=== PATIENT | male | born 1975 | race Caucasian/White ===

== ENCOUNTER 2018-08-25 12:55 | Emergency (ER) | payer MEDICAID ==
[~2018-08-25] VITALS: Ht 177.8 cm; Wt 75.7 kg
[2018-08-25 13:08] VITALS: Ht 177.8 cm; Wt 75.7 kg
[2018-08-25 15:10] VITALS: BP 117/75
== END 2018-08-25 15:10 | disposition home or self-care (01) ==
LOC: ED 12:55
DX: J98.01 Acute bronchospasm (principal)

== ENCOUNTER 2018-09-02 10:24 | Emergency (ER) | payer MEDICAID ==
[~2018-09-02] VITALS: Ht 177.8 cm; Wt 75.7 kg
[2018-09-02 10:33] VITALS: BP 114/69; Ht 177.8 cm; Wt 75.7 kg
== END 2018-09-02 13:15 | disposition home or self-care (01) ==
LOC: ED 10:24
DX: J98.01 Acute bronchospasm (principal); Z98.890 Other specified postprocedural states
CPT/HCPCS: J7613; J7644

== ENCOUNTER 2019-01-03 15:41 | Emergency (ER) | payer MEDICAID ==
[~2019-01-03] VITALS: Ht 177.8 cm; Wt 74.8 kg
[2019-01-03 15:46] VITALS: Ht 177.8 cm; Wt 74.8 kg
[2019-01-03 17:44] LABS: BASOPHIL % 0.4 % (0-2); PLATELET COUNT 282 x10^3mcL (130-400); RED CELL DISTRIBUTION WIDTH 13.6 % (11.5-14.5)
[2019-01-03 17:56] LABS: CALCIUM 9.1 mg/dL (8.5-10.1); CARBON DIOXIDE 31.2 mmol/L (21-32); CHLORIDE SERUM 103 mmol/L (98-107); CREATININE SERUM 0.9 mg/dL (0.7-1.3); GFR1 > 60 mL/min; GLUCOSE SERUM 84 mg/dL (74-106); POTASSIUM SERUM 4.3 mmol/L (3.5-5.1); SODIUM SERUM 141 mmol/L (136-145)
[2019-01-03 18:01] LABS: ALBUMIN 4.3 g/dL (3.4-5.0); ALKALINE PHOSPHATASE 82 U/L (46-116); ALT/SGPT 62 U/L (16-63); AST/SGOT 32 U/L (15-37); BILIRUBIN TOTAL 0.24 mg/dL (0.20-1.00); LIPASE 124 IU/L (73-393); TOTAL PROTEIN, SERUM 8.1 g/dL (6.4-8.2)
[2019-01-04 01:00] VITALS: BP 104/61
== END 2019-01-04 01:00 | disposition home or self-care (01) ==
LOC: ED 15:41
PROVIDERS: Emergency Medicine
DX: R10.816 Epigastric abdominal tenderness (principal); R16.0 Hepatomegaly, not elsewhere classified; R19.7 Diarrhea, unspecified; R14.0 Abdominal distension (gaseous); R11.0 Nausea; Z98.890 Other specified postprocedural states
CPT/HCPCS: 83880; J7030; Q9967